=== PATIENT | male | born 2000 | race Caucasian/White ===

== ENCOUNTER 2024-10-05 16:41 | Emergency (ER) | payer OTHER ==
[~2024-10-05] VITALS: Ht 182.8 cm; Wt 127.0 kg
[2024-10-05] MEDS ORDERED: DEXTROAMPH SACC20 M1 PO (16:57)
[2024-10-05] MEDS ORDERED: Tdap Vaccine 0.5 ML SYR (Adult Vaccine) IM ONE (17:20)
== END 2024-10-05 19:43 | disposition home or self-care (01) ==
LOC: ED 16:41
DX: S90.211A Contusion of right great toe with damage to nail, initial encounter (principal); Z79.899 Other long term (current) drug therapy; W22.8XXA Striking against or struck by other objects, initial encounter; Y93.89 Activity, other specified; Y92.89 Other specified places as the place of occurrence of the external cause; Y99.8 Other external cause status

== ENCOUNTER 2025-01-02 19:12 | Emergency (ER) | payer OTHER ==
[~2025-01-02] VITALS: Ht 182.8 cm; Wt 122.5 kg
[~2025-01-02 19:12] MED LIST: DEXTROAMPH SACC20 M1 PO
[2025-01-02] MEDS ORDERED: Lidocaine Hydrochloride 30 ML VIAL SC ONE (19:50)
== END 2025-01-02 20:33 | disposition home or self-care (01) ==
LOC: ED 19:12
DX: S51.012A Laceration without foreign body of left elbow, initial encounter (principal); X58.XXXA Exposure to other specified factors, initial encounter; Y93.89 Activity, other specified; Y92.89 Other specified places as the place of occurrence of the external cause; Y99.8 Other external cause status

== ENCOUNTER 2025-01-12 13:38 | Emergency (ER) | payer OTHER ==
[~2025-01-12] VITALS: Ht 182.8 cm; Wt 122.5 kg
== END 2025-01-12 14:23 | disposition home or self-care (01) ==
LOC: ED 13:38
DX: S51.012D Laceration without foreign body of left elbow, subsequent encounter (principal); Z48.02 Encounter for removal of sutures; X58.XXXD Exposure to other specified factors, subsequent encounter